=== PATIENT | male | born 1990 | race Caucasian/White ===

== ENCOUNTER 2017-08-03 01:29 | Emergency (ER) | payer SELFPAY ==
[~2017-08-03] VITALS: Ht 188 cm; Wt 88.5 kg
[2017-08-03 02:11] VITALS: BP 115/70
== END 2017-08-03 02:23 | disposition home or self-care (01) ==
LOC: ER 01:29
DX: L55.9 Sunburn, unspecified (principal); L29.8 Other pruritus
CPT/HCPCS: A4606; Z7610